=== PATIENT | male | born 1980 | race African-American/Black ===

== ENCOUNTER 2020-04-03 17:25 | Inpatient (IN) | payer BC, OTHER ==
[~2020-04-03] VITALS: Ht 186.7 cm; Wt 88.5 kg
--- NOTE | 2020-04-03 17:45 | NUR ---
pt ambulatory to er bed 01 c/o generalized body aches for the past 2 days. also endorses dark colored urine. stable vitals. awaiting md yates.
--- NOTE | 2020-04-03 17:53 | NUR ---
aaron mixing plant operator at bedside for eval.
[2020-04-03] MEDS ORDERED: IV NS 0.9% 1,000 ML BAG IV ONE (18:00)
--- NOTE | 2020-04-03 18:08 | NUR ---
iv line started blood drawn and sent to lab.
[2020-04-03 18:26] LABS: BASOPHILS % (AUTO) 0.6 % (0.0-2.0); EOSINOPHILS % (AUTO) 2.6 % (0.0-6.0); HEMATOCRIT 39 % (39-51); HEMOGLOBIN 13.4 g/dL (13.5-17.5); LYMPHOCYTES # (AUTO) 1.8 /CMM (0.8-4.8); LYMPHOCYTES % (AUTO) 30.3 % (20.0-44.0); MEAN CORPUSCULAR HGB CONC 34 g/dl (31.0-36.0); MEAN CORPUSCULAR VOLUME 98 fL (80-96); MONOCYTES # (AUTO) 0.5 /CMM (0.1-1.30); MONOCYTES % (AUTO) 8.8 % (2.0-12.0); NEUTROPHILS # (AUTO) 3.4 /CMM (1.8-8.9); NEUTROPHILS % (AUTO) 57.7 % (43.0-81.0); PLATELET COUNT (AUTO) 211 /CMM (150-450); RED BLOOD CELL COUNT(AUTO) 4.02 MIL/uL (4.5-6.0); WHITE BLOOD COUNT (AUTO) 5.9 K/uL (4.3-11.0)
[2020-04-03 18:33] LABS: APPEARANCE,URINE Slightly Cloudy (CLEAR); BILIRUBIN,URINE SMALL (NEGATIVE); BLOOD, URINE Large Ery/uL (NEGATIVE); COLOR,URINE Dark (YELLOW); KETONES,URINE Negative (NEGATIVE); LEUKOCYTE ESTERASE ,URINE Negative (NEGATIVE); NITRITE, URINE Negative (NEGATIVE); PROTEIN,URINE >=300 mg/dl (NEGATIVE); UGLUCOSE Negative (NEGATIVE)
[2020-04-03 18:44] LABS: CALCIUM, SERUM 8.7 mg/dL (8.5-10.1); CREATININE 1.2 mg/dL (0.6-1.3); POTASSIUM 3.5 mmol/L (3.5-5.1)
[2020-04-03 18:47] LABS: BACTERIA,URINE Few /HPF (None Seen); MUCUS,URINE Few /LPF (None Seen); SQUAMOUS EPITHELIAL CELL,UR Few /HPF (None Seen); URINE AMORPHOUS URATE Few /HPF (None Seen)
[2020-04-03 18:50] LABS: ALBUMIN 3.7 g/dL (3.4-5.0); BILIRUBIN,DIRECT 0.2 mg/dL (0.0-0.2); BILIRUBIN,TOTAL 0.7 mg/dL (0.2-1.0); TOTAL PROTEIN, SERUM 6.9 g/dL (6.4-8.2)
--- NOTE | 2020-04-03 19:25 | NUR ---
report given to amy oneil for arron.
[2020-04-03] MEDS ORDERED: TEMAZEPAM 15 MG CAPSULE PO PRN (21:00)
[2020-04-03] MEDS ORDERED: ONDANSETRON HCL/PF 4 MG/2 ML VIAL IVP PRN (21:00)
[2020-04-03] MEDS ORDERED: Z GUARD REMEDY 2 OZ OINT TP PRN (21:00)
--- NOTE | 2020-04-03 21:46 | NUR ---
COVID SWAB SENT TO LAB
--- NOTE | 2020-04-03 22:27 | NUR ---
REPORT GIVEN TO LUIS FELIPE FOR YARED
--- NOTE | 2020-04-03 22:52 | NUR ---
PT TRANSFERRED TO MS BED 313
[2020-04-03 23:00] VITALS: BP 114/65
[2020-04-03] MEDS: IV NS 0.9% 1,000 ML IV PRN (23:30)
--- NOTE | 2020-04-03 23:30 | NUR ---
MS RN ADMITTING NOTES ADMITTED PATIENT, ALERT ORIENTED X4, COMPLAINS OF GENERALIZED BODY ACHES AFTER WORKING OUT X 3-4 DAYS. AMBULATORY, DENIES ANY PAIN OR DISCOMFORT AT THIS TIME. ORIENTED TO UNIT AND THE USE OF CALL LIGHT FOR SAFETY, INITIAL ASSESSMENT INITIATED, SKIN INTACT, REFUSED, TO WEAR HOSPITAL GOWN AT THIS TIME, CAN STAND STEADILY, NO NAUSEA OR VOMITING, NO DIZZINESS VERBALIZED BY PATIENT, ALL NEEDS ANTICIPATED, WILL CONTINUE TO MONITOR ACCORDINGLY.
[2020-04-04 00:16] VITALS: BP 114/65
[2020-04-04] MEDS: IV NS 0.9% 1,000 ML IV PRN (06:06)
--- NOTE | 2020-04-04 06:46 | NUR ---
MS RN NOTES ABLE TO REST AND SLEPT AT INTERVALS, NO SIGNS OF DISTRESS NOTED, SAFETY MEASURES IN PLACE, DENIES ANY PAIN OR DISCOMFORT AT THIS TIME. WILL ENDORSE TO AM NURSE FOR CONTINUITY OF CARE.
[2020-04-04 07:35] LABS: BASOPHILS % (AUTO) 0.7 % (0.0-2.0); EOSINOPHILS % (AUTO) 3.5 % (0.0-6.0); HEMATOCRIT 38 % (39-51); HEMOGLOBIN 12.7 g/dL (13.5-17.5); LYMPHOCYTES % (AUTO) 38.3 % (20.0-44.0); MEAN CORPUSCULAR HGB CONC 34 g/dl (31.0-36.0); MEAN CORPUSCULAR VOLUME 99 fL (80-96); MONOCYTES # (AUTO) 0.5 /CMM (0.1-1.30); MONOCYTES % (AUTO) 9.1 % (2.0-12.0); NEUTROPHILS # (AUTO) 2.6 /CMM (1.8-8.9); NEUTROPHILS % (AUTO) 48.4 % (43.0-81.0); PLATELET COUNT (AUTO) 191 /CMM (150-450); RED BLOOD CELL COUNT(AUTO) 3.81 MIL/uL (4.5-6.0); WHITE BLOOD COUNT (AUTO) 5.3 K/uL (4.3-11.0)
--- NOTE | 2020-04-04 07:44 | NUR ---
MS RN OPENING NOTE PATIENT IN BED RESTING COMFORTABLY. PATIENT IN NO ACUTE DISTRESS. NO SOB NOTED. PATIENT BREATHING IS EVEN AND UNLABORED. EDUCATED PATIENT TO USE CALL LIGHT FOR ASSISTANCE. SAFETY PRECAUTIONS IN PLACE. PATIENT BED IS LOCKED AND IN LOWEST POSITION. CALL LIGHT WITHIN REACH. WILL CONTINUE TO MONITOR.
[2020-04-04] MEDS: PANTOPRAZOLE 40 MG TABLET.DR PO SCH (07:58)
[2020-04-04 08:00] VITALS: BP 128/78
[2020-04-04 08:57] LABS: ALBUMIN 3.1 g/dL (3.4-5.0); BILIRUBIN,DIRECT 0.2 mg/dL (0.0-0.2); BILIRUBIN,TOTAL 0.6 mg/dL (0.2-1.0); CALCIUM, SERUM 8.3 mg/dL (8.5-10.1); MAGNESIUM 2.1 mg/dL (1.8-2.4); POTASSIUM 3.8 mmol/L (3.5-5.1)
[2020-04-04] MEDS ORDERED: Sodium Bicarbonate 50 MEQ in IV 1/2NS 1000 ML 1,000 ML IV PRN (09:00)
[2020-04-04] MEDS ORDERED: IV NS 0.9% 1,000 ML IV PRN (12:30)
--- NOTE | 2020-04-04 14:00 | NUR ---
MS RN NOTE PATIENT IN NO ACUTE DISTRESS. NO SOB NOTED. PATIENT BREATHING IS EVEN AND UNLABORED. NEEDS AND CONCERNS ADDRESSED AT THIS TIME.
[2020-04-04 15:21] LABS: APPEARANCE,URINE CLEAR (CLEAR); BILIRUBIN,URINE NEGATIVE (NEGATIVE); BLOOD, URINE LARGE Ery/uL (NEGATIVE); COLOR,URINE YELLOW (YELLOW); KETONES,URINE TRACE (NEGATIVE); LEUKOCYTE ESTERASE ,URINE NEGATIVE (NEGATIVE); NITRITE, URINE NEGATIVE (NEGATIVE); PH,URINE 6.5 (5.0-8.0); PROTEIN,URINE 30 mg/dl (NEGATIVE); UGLUCOSE NEGATIVE (NEGATIVE); UROBILINOGEN,URINE 0.2 EU/dL (0.2)
[2020-04-04 15:54] LABS: BACTERIA,URINE Rare /HPF (None Seen); WBC,URINE 0-2 /HPF (0-3)
[2020-04-04 15:55] LABS: SQUAMOUS EPITHELIAL CELL,UR 0-2 /HPF (None Seen)
[2020-04-04 15:57] LABS: EOSINOPHIL,URINE None Seen
[2020-04-04 16:00] VITALS: BP 115/66
[2020-04-04 16:19] LABS: CREATININE, URINE 61.5 MG/DL (30.0-125.0); URINE TOTAL PROTEIN 60.9 mg/dL (0-11.9)
--- NOTE | 2020-04-04 18:45 | NUR ---
MS RN CLOSING NOTE PATIENT IN BED RESTING COMFORTABLY. PATIENT IN NO ACUTE DISTRESS. NO SOB NOTED. PATIENT BREATHING IS EVEN AND UNLABORED. PATIENT KEPT CLEAN, DRY, AND COMFORTABLE THROUGHOUT SHIFT. NEEDS AND CONCERNS ADDRESSED. PATIENT STATES NO PAIN AT THIS TIME. SAFETY PRECAUTIONS IN PLACE. PATIENT BED IS LOCKED AND IN LOWEST POSITION. CALL LIGHT WITHIN REACH. WILL ENDORSE CARE TO PM SHIFT FOR YARED.
[2020-04-04 20:00] VITALS: BP 127/64
--- NOTE | 2020-04-04 20:00 | NUR ---
MS RN NOTES RECEIVED PATIENT IN BED, AWAKE, CONSCIOUS, COOPERATIVE, BREATHING AT ROOM AIR, UNLABORED BREATHING, NO SIGNS OF RESPIRATORY DISTRESS, LAC #18G, LEFT HAND #22G NA BICARB @ 150ML/HR INFUSING WELL, INTACT, SIDE RAILS UP, WILL CONTINUE TO MONITOR.
[2020-04-05 06:51] LABS: BASOPHILS % (AUTO) 0.8 % (0.0-2.0); EOSINOPHILS % (AUTO) 3.6 % (0.0-6.0); HEMATOCRIT 36 % (39-51); HEMOGLOBIN 12.1 g/dL (13.5-17.5); LYMPHOCYTES # (AUTO) 1.9 /CMM (0.8-4.8); MEAN CORPUSCULAR HGB CONC 34 g/dl (31.0-36.0); MEAN CORPUSCULAR VOLUME 99 fL (80-96); MONOCYTES # (AUTO) 0.4 /CMM (0.1-1.30); MONOCYTES % (AUTO) 8.4 % (2.0-12.0); NEUTROPHILS # (AUTO) 2.3 /CMM (1.8-8.9); NEUTROPHILS % (AUTO) 48.2 % (43.0-81.0); PLATELET COUNT (AUTO) 173 /CMM (150-450); RED BLOOD CELL COUNT(AUTO) 3.64 MIL/uL (4.5-6.0); WHITE BLOOD COUNT (AUTO) 4.9 K/uL (4.3-11.0)
--- NOTE | 2020-04-05 07:18 | NUR ---
MS RN CLOSING NOTES ENDORSED PATIENT IN BED, AWAKE, CONSCIOUS, COOPERATIVE, BREATHING AT ROOM AIR, UNLABORED BREATHING, NO SIGNS OF RESPIRATORY DISTRESS, LAC #18G, LEFT HAND #22G NA BICARB @ 150ML/HR INFUSING WELL, INTACT, SIDE RAILS UP, WILL CONTINUE TO MONITOR, NO COMPLAINTS OF PAIN.
[2020-04-05 07:20] LABS: BILIRUBIN,TOTAL 0.6 mg/dL (0.2-1.0); CALCIUM, SERUM 8.1 mg/dL (8.5-10.1); MAGNESIUM 1.9 mg/dL (1.8-2.4); PHOSPHORUS 3.5 mg/dL (2.5-4.9); TOTAL PROTEIN, SERUM 5.7 g/dL (6.4-8.2)
[2020-04-05] MEDS: PANTOPRAZOLE 40 MG TABLET.DR PO SCH (07:54)
[2020-04-05 08:00] VITALS: BP 121/73
--- NOTE | 2020-04-05 09:00 | NUR ---
MS RN NOTE REPORT FROM LAB BETTY HARJINDER THAT [facility] RESULTED AT 45.9. REPORTED RESULTS TO JOSE DANIEL GIPSON. LEONELA MADE AWARE, NO NEW ORDERS AT THIS TIME.
--- NOTE | 2020-04-05 11:09 | NUR ---
MS RN NOTE Ryan Prajapati talked to patient. Patient requesting 2nd rapid covid test, per Ryan Prajapati informed to patient that he has no symptoms noted and no second test needed to be ordered per Alo as patient also tested negative upon admission. Patient is made aware through conversations with Ryan and patient understands.
--- NOTE | 2020-04-05 11:33 | NUR ---
MS AUTHORIZATION REPRESENTATIVE NOTE PATIENT MEDICALLY STABLE FOR DISCHARGE. PATIENT IN NO ACUTE DISTRESS. NO SOB NOTED. PATIENT BREATHING IS EVEN AND UNLABORED. PATIENT REFUSED SKIN ASSESSMENT, DESPITE RISKS VS BENEFITS. DC INSTRUCTIONS PROVIDED. PATIENT VERBALIZED UNDERSTANDING. IV REMOVED. ID BAND REMOVED. PATIENT KEPT, CLEAN, DRY AND COMFORTABLE THROUGHOUT SHIFT. PATIENT NEEDS AND CONCERNS ADDRESSED. PATIENT STATED NO PAIN THROUGHOUT SHIFT. PATIENT HAS BELONGINGS WITH HIM AND SIGNED BELONGINGS LIST. PATIENT GOING BY [facility] GOING BACK HOME INSTEAD OF BEING PICKED UP BY . PATIENT IS AMBULATORY WITH STEADY GAIT. MD AWARE OF DISCHARGE.
== END 2020-04-05 11:30 | disposition home or self-care (01) | DRG 558 ==
LOC: ER 17:33 → MED 22:03
PROVIDERS: ADMIT Nurse Practitioner Acute Care; ATTEND Internal Medicine
DX: M62.82 Rhabdomyolysis (principal); R74.0 Nonspecific elevation of levels of transaminase and lactic acid dehydrogenase [LDH]; F12.90 Cannabis use, unspecified, uncomplicated; R79.89 Other specified abnormal findings of blood chemistry; R74.8 Abnormal levels of other serum enzymes
CPT/HCPCS: 36415; 71045-TC; 80048-TC; 80053-TC; 80076-TC; 81000-TC; 82550-TC; 82553; 82570-TC; 83735-TC; 84100-TC; 84155-TC; 84300-TC; 85025-TC; 87081-TC; G0378; J3490; J7030; J7042